=== PATIENT | female | born 1940 | race Caucasian/White ===

== ENCOUNTER → 2017-05-15 | Outpatient (CLI) | payer OTHER ==
[~2017-05-15] MED LIST: ALPR.25 PO; ASPI81CH PO; ATEN25 PO; ATOR40TA PO; GLYBURIDE; HYDR1TAB94 PO; INSULANPEN SC; LISI20; LOPE2C PO; METFORMIN; NAPR220 PO; Nortriptyline H25 MG PO; OMEP20ER PO; OXYB5 PO; ROSU10TA; TRADJENTA5 MG PO; UBID10; VENL75; ZOLP5 PO
[2017-05-15 16:33] LABS: Creatinine, Urine Random 87.4 mg/dL (27.00-270.00)
[2017-05-15 16:35] LABS: Microalb/Creat Ratio UR, Rand 34.325 mg/g (0.000-30.000)
== END | disposition home or self-care (01) ==
LOC: LAB SHORT 14:10 → LAB 14:10 → LAB FUT 04-29 16:25 → EDSTATUS 04-29 16:25
PROVIDERS: Family Medicine
DX: E11.9 Type 2 diabetes mellitus without complications (principal); E78.5 Hyperlipidemia, unspecified
CPT/HCPCS: 82043; 82570

== ENCOUNTER 2018-09-17 23:13 | Inpatient (IN) | payer OTHER ==
[~2018-09-17] VITALS: Ht 167.6 cm; Wt 81.2 kg
[2018-09-18 00:25] LABS: BASOPHILS ABSOLUTE AUTO 0.03 K/mm3 (0.00-0.23); BASOPHILS PERCENT AUTO 0 % (0-2); EOSINOPHILS PERCENT AUTO 0 % (0-6); Hematocrit 45.3 % (33.0-51.0); Hemoglobin 14.3 g/dL (11.5-16.0); IMMATURE GRAN ABSOLUTE AUTO 0.06 K/mm3 (0.00-0.10); IMMATURE GRAN PERCENT AUTO 1 % (0-1); LYMPHOCYTES ABSOLUTE AUTO 1.15 K/mm3 (0.84-5.20); LYMPHOCYTES PERCENT AUTO 10 % (21-46); MONOCYTES PERCENT AUTO 8 % (4-13); Mean Corpuscular HGB 28.7 pg (26.0-34.0); Mean Corpuscular HGB Conc 31.6 g/dL (31.5-36.5); Mean Corpuscular Volume 91 fL (80-100); Mean Platelet Volume 10.8 fL (9.1-12.4); NEUTROPHILS PERCENT AUTO 81 % (41-73); Platelet Count 226 K/mm3 (150-400); RDW Coefficient Variation 12.9 % (11.7-14.2); RDW Standard Deviation 42.3 fL (35.1-46.3); Red Blood Cell Count 4.99 M/mm3 (3.80-5.20); White Blood Cell Count 11.24 K/mm3 (4.00-11.30)
[2018-09-18 00:38] LABS: Alanine Aminotransfer (ALT/SGP 20 U/L (12-78); Albumin, Blood 3.7 g/dL (3.4-5.0); Albumin/Globulin Ratio 0.8 (0.8-1.8); Alk Phos 82 U/L (50-136); Anion Gap 10 mmol/L (6-16); Aspartate Aminotrans (AST/SGOT 19 U/L (12-37); Blood Urea Nitrogen 27 mg/dL (8-24); Bun/Creatinine Ratio 13.3 (12.0-20.0); CO2, Blood 27 mmol/L (21-32); Calcium, Blood 8.9 mg/dL (8.5-10.1); Chloride, Blood 103 mmol/L (98-108); Creatinine, Blood 2.03 mg/dL (0.40-1.00); Globulin, Blood 4.7 g/dL (2.2-4.0); Glomerular Filtration Rate 25 (60-); Glucose, Blood 297 mg/dL (70-99); International Normalized Ratio 0.99; Magnesium, Blood 1.4 mg/dL (1.6-2.4); Potassium, Blood 3.5 mmol/L (3.5-5.5); Prothrombin Time Results 10.5 Sec (9.7-11.5); Sodium, Blood 140 mmol/L (136-145); Total Protein, Blood 8.4 g/dL (6.4-8.2); Troponin I <0.015 ng/mL (0.000-0.040)
[2018-09-18] MEDS ORDERED: TRAZ100 PO (01:11)
[2018-09-18] MEDS ORDERED: BENADRYL25 MG PO (01:12)
--- NOTE | 2018-09-18 05:28 | NUR ---
PATIENT IS A NEW ADMIT FROM THE ED. SELF TRANSFER FROM BED TO [facility]. AXO X 3 AND ONE ASSIST TO BSC. IV PROTONIX INFUSING. ORIENTED TO ROOM AND CALL LIGHT SYSTEM. DENIES PAIN, SOB, AND N/V. CALL LIGHT IN REACH.
[2018-09-18 06:07] LABS: BASOPHILS ABSOLUTE AUTO 0.02 K/mm3 (0.00-0.23); BASOPHILS PERCENT AUTO 0 % (0-2); EOSINOPHILS PERCENT AUTO 0 % (0-6); Hematocrit 41.9 % (33.0-51.0); Hemoglobin 13.1 g/dL (11.5-16.0); IMMATURE GRAN ABSOLUTE AUTO 0.04 K/mm3 (0.00-0.10); IMMATURE GRAN PERCENT AUTO 0 % (0-1); LYMPHOCYTES ABSOLUTE AUTO 1.29 K/mm3 (0.84-5.20); LYMPHOCYTES PERCENT AUTO 12 % (21-46); MONOCYTES ABSOLUTE AUTO 1.01 K/mm3 (0.16-1.47); MONOCYTES PERCENT AUTO 9 % (4-13); Mean Corpuscular HGB 28.6 pg (26.0-34.0); Mean Corpuscular HGB Conc 31.3 g/dL (31.5-36.5); Mean Corpuscular Volume 92 fL (80-100); Mean Platelet Volume 10.6 fL (9.1-12.4); NEUTROPHILS ABSOLUTE AUTO 8.75 K/mm3 (1.96-9.15); NEUTROPHILS PERCENT AUTO 79 % (41-73); Platelet Count 192 K/mm3 (150-400); RDW Standard Deviation 42.8 fL (35.1-46.3); Red Blood Cell Count 4.58 M/mm3 (3.80-5.20); White Blood Cell Count 11.11 K/mm3 (4.00-11.30)
--- NOTE | 2018-09-18 06:10 | NUR ---
GI AND SURGERY CONSULTS CALLED IN.
--- NOTE | 2018-09-18 16:37 | NUR ---
SHIFT SUMMARY THE PATIENT PRESENTED THIS SHIFT WITH VITALS WNL, A&O X4 AND WITH LUNG SOUNDS THAT WERE DIMINISHED IN THE BASES. THE PATIENT'S BLOOD REPORT CAME BACK WITH THE PATIENT HAVING MULTIPAL ANTI-BODIES IN HER BLOOD, SO ANY BLOOD TRANSFUSIONS WILL HAVE TO BE ORDERED IN FOR THE PATIENT. THE PATIENT HAD A CONSULT FROM DR. LOWERY AND IS WAITING FOR DR. OLGUIN TO DO HIS CONSULT. THE PATIENT HAS COMPLAINED OF NAUSEA MOST OF THE SHIFT AND HAS RECEIVED ZOFRAN TWICE AND HAS A PROTONIX DRIP RUNNING ALL SHIFT. THE PATIENT HAS BEEN NPO MOST OS THE SHIFT, EXCEPT ICE CHIPS UNTIL 1400 THEN COMPLETELY NPO. THE PATIENT IS RESTING WAITING A THIS TIME, WILL CONTINUE TO MONITOR.
--- NOTE | 2018-09-18 19:07 | NUR ---
C/O 8-9/10 UPPER ABDOMEN, MIDDLE. DESCRIBES ACHING AND STATES IT IS TOLERABLE. POSTIONED FOR COMFORT.
--- NOTE | 2018-09-18 19:10 | NUR ---
History, Chart, Medications and Allergies reviewed before start of procedure. Patient confirms NPO status and agrees with scheduled surgery.
--- NOTE | 2018-09-18 19:12 | NUR ---
PATIENT REQUESTED CODEINE TO BE REMOVED FROM HER ALLERGY LIST AND DENIES ALLERGIC REACTION TO IT.
--- NOTE | 2018-09-18 19:26 | NUR ---
09/18/181925 Leigha Lyman A PATIENT DETERMINED TO BE ASA APPROPRIATE FOR PROPOFOL SEDATION PRIOR TO START OF PROCEDURE BY DR. DURAN. MONITOR INTACT WITH CONTINUOUS PULSE OXIMETRY AND INTERMITTENT BP.
--- NOTE | 2018-09-18 20:04 | NUR ---
EGD COMPLETE. PATIENT TO BE TRANSFERED TO PCU WHEN A ROOM IS AVAILABLE. 18F NG SUMP TUBE TO LOW INTERMITTEN SX VIA WALL SX UNIT. DARK BROWN CONTENTS BEING SUCTIONED INTO CANISTER.
--- NOTE | 2018-09-18 20:08 | NUR ---
DR DURAN AT BEDSIDE IN DAY SURGERY SPEAKING TO PATIENT ABOUT EGD RESULTS.
--- NOTE | 2018-09-18 22:16 | NUR ---
1855 09/18/18 PT TAKEN VIA STRETCHER TO ENDOSCOPY AT CHANGE OF SHIFT. CALL RECEIVED AN HOUR LATER PT WAS TO BE TRANSFERRED TO PCU 13 FROM THE PROCEDURE ROOM. WAS NOTIFIED, HE WAS IN ROOM 303 WAITING FOR HIS WIFES RETURN, PT BELONGINGS SENT WITH TO PCU 13.
--- NOTE | 2018-09-18 23:10 | NUR ---
POST PROCEDURE: PT TO PCU13 AT ABOUT 2030. DAY SURGERY FAUSTO ADAMS GAVE REPORT AT BEDSIDE. UPON ASSESSMENT PT IS IN NO VISABLE DISTRESS, VSS, PT ORIENTED. NGT TO LOW INTERMITTANT SUCTION, DRAINAGE IS BLACK, MODERATE AMOUNT. FAUSTO ADAMS REPORTS POST OP VITALS ARE NOW COMPLETE WITH VITALS TAKEN ON PCU, WILL CTM. PT DENIES ANY PAIN, NAUSEA, UNDERSTANDS HOW TO USE CALL LIGHT. PT AT BEDSIDE. WILL MONITOR
[2018-09-19 06:02] LABS: BASOPHILS ABSOLUTE AUTO 0.04 K/mm3 (0.00-0.23); BASOPHILS PERCENT AUTO 0 % (0-2); EOSINOPHILS PERCENT AUTO 0 % (0-6); Hematocrit 39.6 % (33.0-51.0); Hemoglobin 12.3 g/dL (11.5-16.0); IMMATURE GRAN ABSOLUTE AUTO 0.03 K/mm3 (0.00-0.10); IMMATURE GRAN PERCENT AUTO 0 % (0-1); LYMPHOCYTES ABSOLUTE AUTO 1.55 K/mm3 (0.84-5.20); LYMPHOCYTES PERCENT AUTO 16 % (21-46); MONOCYTES ABSOLUTE AUTO 1.07 K/mm3 (0.16-1.47); MONOCYTES PERCENT AUTO 11 % (4-13); Mean Corpuscular HGB 28.9 pg (26.0-34.0); Mean Corpuscular HGB Conc 31.1 g/dL (31.5-36.5); Mean Corpuscular Volume 93 fL (80-100); Mean Platelet Volume 10.8 fL (9.1-12.4); NEUTROPHILS ABSOLUTE AUTO 6.92 K/mm3 (1.96-9.15); NEUTROPHILS PERCENT AUTO 72 % (41-73); Platelet Count 176 K/mm3 (150-400); RDW Coefficient Variation 13.2 % (11.7-14.2); RDW Standard Deviation 44.7 fL (35.1-46.3); Red Blood Cell Count 4.26 M/mm3 (3.80-5.20); White Blood Cell Count 9.61 K/mm3 (4.00-11.30)
--- NOTE | 2018-09-19 06:17 | NUR ---
SUMMARY: PT HAS DONE WELL POST EGD. DR. HEREDIA CALLED AT ABOUT 2020 DUE TO PHARMACY UNABLE TO MAKE ALL PO MEDS IV REQUESTED BY DR. DURAN. WILL HOLD PO MEDS WHILE PT NPO. ABLE TO ORDER IV BENADRYAL AND METOPROLOL PRN. PT HAD SOME ASYMPTOMATIC HTN, SEE VS, MEDICATED PER EMAR, OTHERWISE VSS. PT IS A/O, TELE WNL. NGT ON INTERMITTANT SUCTION, TOTAL OF 300ML OUT SINCE INSERTED IN PROCEDURE, BLACK LIQUID. PT HAS DENIED NAUSEA/PAIN THIS SHIFT. ABLE TO SLEEP WELL TONIGHT.
[2018-09-19 06:23] LABS: Albumin, Blood 2.9 g/dL (3.4-5.0); Albumin/Globulin Ratio 0.7 (0.8-1.8); Bilirubin, Total 0.9 mg/dL (0.1-1.0); Bun/Creatinine Ratio 15.1 (12.0-20.0); Creatinine, Blood 1.79 mg/dL (0.40-1.00); Globulin, Blood 3.9 g/dL (2.2-4.0); Potassium, Blood 3.6 mmol/L (3.5-5.5); Total Protein, Blood 6.8 g/dL (6.4-8.2)
--- NOTE | 2018-09-19 09:55 | NUR ---
PT PLEASANT COOP A/O. SOME ABDOMINAL TENDERNESS. HAS NG TUBE IN PLACE TO LOW INT SUCTION. PRODUCING BLACKIS EMESIS IN CONTAINER. H/R REG, NO MURMER NOTED. PER TELE: NSR IN 90'S. LUNGS CLEAR, RESP EASY, UNLABORED. ON R/A. BT X4 LAST BM 2 DAYS. VIODS PER BATHROOM, 1 ASST, SOOME INCONT. IN ATTENDS. BED IN LOW POSITION, CALL LITE IN REACH, CALLS APPROP
--- NOTE | 2018-09-19 13:11 | NUR ---
Attempted Pt visit this afternoon. Within minutes of arrival Pt receives phone call and requests for this RN to come back at a later time.
--- NOTE | 2018-09-19 13:28 | NUR ---
CALLED REPORT TO FAUSTO TSANG AT [facility]. [phone]
--- NOTE | 2018-09-19 14:27 | NUR ---
PT SENT OUT ON [facility] [place] AT 2299
== END 2018-09-19 14:21 | disposition short-term general hospital (02) | DRG 378 ==
LOC: ER 23:13 → MEDS 23:14 → PCU 09-18 20:43
PROVIDERS: Emergency Medicine; Internal Medicine; Internal Medicine Gastroenterology; ADMIT Hospitalist
PROC: 0DJ08ZZ Inspection of Upper Intestinal Tract, Via Natural or Artificial Opening Endoscopic (ICD-10-PCS; principal; 2018-09-18 19:00)
DX: K92.0 Hematemesis (principal); N18.4 Chronic kidney disease, stage 4 (severe); K44.9 Diaphragmatic hernia without obstruction or gangrene; E11.22 Type 2 diabetes mellitus with diabetic chronic kidney disease; Z79.4 Long term (current) use of insulin; E78.5 Hyperlipidemia, unspecified; I12.9 Hypertensive chronic kidney disease with stage 1 through stage 4 chronic kidney disease, or unspecified chronic kidney disease; L40.50 Arthropathic psoriasis, unspecified; D51.0 Vitamin B12 deficiency anemia due to intrinsic factor deficiency; Z79.82 Long term (current) use of aspirin; R13.10 Dysphagia, unspecified; Z96.642 Presence of left artificial hip joint; K57.30 Diverticulosis of large intestine without perforation or abscess without bleeding; K22.8 Other specified diseases of esophagus; E11.42 Type 2 diabetes mellitus with diabetic polyneuropathy; G89.29 Other chronic pain; Z79.891 Long term (current) use of opiate analgesic; H40.9 Unspecified glaucoma; G43.909 Migraine, unspecified, not intractable, without status migrainosus; M19.90 Unspecified osteoarthritis, unspecified site; K31.89 Other diseases of stomach and duodenum; Z79.1 Long term (current) use of non-steroidal anti-inflammatories (NSAID)
CPT/HCPCS: 36415; 74176; 80053; 82272; 82947; 83605; 83690; 83735; 84484; 85025; 85610; 86850; 86900; 86901; 93005; 93010; 96365; 96366; 96368; 96375; 96376; 99285-25; C9113; J0360; J1170; J1200; J2405; J2704; J3475; J7030; J7120

== ENCOUNTER → 2018-12-17 | Outpatient (CLI) | payer OTHER ==
[~2018-12-17] MED LIST changes: +Aspirin EC81 MG PO; +BENADRYL25 MG PO; +MAG6464 MG PO; +TRAZ100 PO
[2018-12-17 19:19] LABS: Bilirubin, Urine Neg (Neg); Blood, Urine 3+ (Neg); Glucose Qualitative, Urine Neg (Neg); Ketones, Urine Neg (Neg); Leukocyte Esterase, Urine 3+ (Neg); Nitrite, Urine Pos (Neg); Protein, Urine 2+ (Neg); Specific Gravity, Urine 1.015 (1.003-1.022); Urobilinogen, Urine NORM (Normal)
[2018-12-17 19:31] LABS: Appearance, Urine Hazy (Clear); Color, Urine Yellow (P-Yellow)
[2018-12-17 19:35] LABS: Bacteria Many /hpf; Red Blood Cells, Urine 0-2 /hpf (0-2); Squamous Epithelial Cells Few /hpf (Few)
== END | disposition home or self-care (01) ==
LOC: LAB 18:56 → LAB SHORT 18:56
PROVIDERS: Family Medicine
DX: R30.0 Dysuria (principal)
CPT/HCPCS: 81001; 87077; 87086; 87147; 87186

== ENCOUNTER 2019-04-07 09:17 | Day surgery (SDC) | payer OTHER ==
[~2019-04-07] VITALS: Ht 167.6 cm; Wt 81.4 kg
--- NOTE | 2019-04-07 11:46 | NUR ---
04/07/19 Mima6 Danielle Bustos CBG WAS 55. DR STARKEY NOTIFIED, PATIENT AWAKE ALERT SKIN P/W/D, DRINKING V8 JUICE AND EATING COOKIES, NO ORDERS AT THIS TIME
== END 2019-04-07 12:00 | disposition home or self-care (01) ==
LOC: ORSCSDS 09:17
PROVIDERS: Ophthalmology
PROC: 08RK3JZ Replacement of Left Lens with Synthetic Substitute, Percutaneous Approach (ICD-10-PCS; principal; 2019-04-07 10:30)
DX: H25.12 Age-related nuclear cataract, left eye (principal); I10 Essential (primary) hypertension; E11.9 Type 2 diabetes mellitus without complications; E78.00 Pure hypercholesterolemia, unspecified; Z79.4 Long term (current) use of insulin; Z79.82 Long term (current) use of aspirin; Z79.899 Other long term (current) drug therapy
CPT/HCPCS: 82947; J2001; J2250; J3010; J3301; J7799; V2632

== ENCOUNTER → 2019-08-18 | Outpatient (CLI) | payer OTHER | END | disposition home or self-care (01) | LOC: LAB 13:52 → LAB SHORT 13:52 | DX: N39.0 Urinary tract infection, site not specified (principal) | CPT/HCPCS: 87077; 87086; 87186 ==

== ENCOUNTER 2020-01-05 14:38 | Inpatient (IN) | payer OTHER ==
[~2020-01-05] VITALS: Ht 167.6 cm; Wt 73.7 kg
[~2020-01-05 14:38] MED LIST changes: +BASAGLAR K100 UNIT/1 SC; -INSULANPEN SC
[2020-01-05] MEDS ORDERED: AMLO5 PO (15:39)
[2020-01-05] MEDS ORDERED: GABA300 PO (15:40)
[2020-01-05] MEDS ORDERED: METO25ER PO (15:40)
[2020-01-05 16:22] LABS: BASOPHILS ABSOLUTE AUTO 0.04 K/mm3 (0.00-0.23); BASOPHILS PERCENT AUTO 0 % (0-2); EOSINOPHILS PERCENT AUTO 0 % (0-6); Hematocrit 44.6 % (33.0-51.0); Hemoglobin 14.2 g/dL (11.5-16.0); IMMATURE GRAN ABSOLUTE AUTO 0.08 K/mm3 (0.00-0.10); IMMATURE GRAN PERCENT AUTO 1 % (0-1); LYMPHOCYTES ABSOLUTE AUTO 0.67 K/mm3 (0.84-5.20); LYMPHOCYTES PERCENT AUTO 5 % (21-46); MONOCYTES ABSOLUTE AUTO 1.46 K/mm3 (0.16-1.47); MONOCYTES PERCENT AUTO 11 % (4-13); Mean Corpuscular HGB 28.2 pg (26.0-34.0); Mean Corpuscular HGB Conc 31.8 g/dL (31.5-36.5); Mean Corpuscular Volume 89 fL (80-100); Mean Platelet Volume 12.3 fL (9.1-12.4); NEUTROPHILS ABSOLUTE AUTO 10.74 K/mm3 (1.96-9.15); NEUTROPHILS PERCENT AUTO 83 % (41-73); Platelet Count 167 K/mm3 (150-400); RDW Coefficient Variation 13.2 % (11.7-14.2); RDW Standard Deviation 42.8 fL (35.1-46.3); Red Blood Cell Count 5.03 M/mm3 (3.80-5.20); White Blood Cell Count 12.99 K/mm3 (4.00-11.30)
[2020-01-05 16:50] LABS: Alanine Aminotransfer (ALT/SGP 16 U/L (12-78); Albumin, Blood 2.3 g/dL (3.4-5.0); Albumin/Globulin Ratio 0.5 (0.8-1.8); Alk Phos 86 U/L (50-136); Anion Gap 10 mmol/L (6-16); Aspartate Aminotrans (AST/SGOT 22 U/L (12-37); Bilirubin, Total 1.2 mg/dL (0.1-1.0); Blood Urea Nitrogen 31 mg/dL (8-24); Bun/Creatinine Ratio 14.3 (12.0-20.0); CO2, Blood 23 mmol/L (21-32); Calcium, Blood 8.1 mg/dL (8.5-10.1); Chloride, Blood 100 mmol/L (98-108); Creatinine, Blood 2.17 mg/dL (0.40-1.00); Globulin, Blood 4.7 g/dL (2.2-4.0); Glomerular Filtration Rate 23 (60-); Glucose, Blood 290 mg/dL (70-99); Potassium, Blood 3.7 mmol/L (3.5-5.5); Sodium, Blood 133 mmol/L (136-145)
[2020-01-05 17:01] LABS: Ethanol (Alcohol), Blood, Med <3 mg/dL
[2020-01-05 18:13] LABS: Source, Urine Clean Catch
[2020-01-05 18:21] LABS: Blood, Urine 5+ (Neg); Glucose Qualitative, Urine Neg (Neg); Ketones, Urine 1+ (Neg); Leukocyte Esterase, Urine 3+ (Neg); Nitrite, Urine Pos (Neg); Protein, Urine 3+ (Neg); Urobilinogen, Urine 1+ (Normal)
[2020-01-05 18:47] LABS: Appearance, Urine Cloudy (Clear); Bilirubin, Urine 1+ (Neg); Color, Urine Yellow (P-Yellow)
[2020-01-05 18:48] LABS: White Blood Cells, Urine TNTC /hpf (0-5)
[2020-01-05 18:49] LABS: Bacteria Many /hpf; Red Blood Cells, Urine TNTC /hpf (0-2); Squamous Epithelial Cells Few /hpf (Few)
[2020-01-05] MEDS ORDERED: HYDROCODONE-AC1 EAC8 PO (20:05)
[2020-01-05] MEDS ORDERED: NORTRIPTYLINE H25 M1 PO (20:06)
[2020-01-05] MEDS ORDERED: ATOR40TA PO (20:07)
--- NOTE | 2020-01-05 23:21 | NUR ---
PATIENT IS A NEW ADMIT FROM THE ED. AXOX 3 AND THREE PERSON TRANSFER FROM [facility] TO BED. BEDREST. NS INFUSING AT 100 mL/HR. DENIES PAIN AND SOB. NAUSEOUS IN BED WITH TRANSFER AND MOVEMENT. ON ROOM AIR. PATIENT ORIENTED TO ROOM AND CALL LIGHT SYSTEM. PATIENT NOTED TO HAVE TEMP 101.3 AND FIVE BLANKETS REMOVED. TEMP RECHECKED AT 99.1. REPORTS WILL WATCH TV FOR AN HOUR.
--- NOTE | 2020-01-05 23:33 | NUR ---
TELEMETRY PLACED AND TECH REPORTS ST 110 W/PVC. CBG CHECKED AT 201. PSORIASIS NOTED ON RIGHT TOES AND PATIENT REPORTS GROIN AREA AND NOTED. NS INFUSING AT 100 ml/HR. IV ZOFRAN 4 MG GIVEN FOR NAUSEA. PATIENT BROUGHT JELLO TO SNACK ON. CALL LIGHT IN REACH.
--- NOTE | 2020-01-06 04:20 | NUR ---
SHIFT SUMMARY PATIENT HAD NO ACUTE CHANGES OBSERVED. AXOX 3 AND BEDREST. PIV REMAINS INTACT. NS INFUSING AT 75mL/HR. CBG 207. SUPERINTENDENT MAINTENANCE REPORTS ST 110 W/PVC. PATIENT REPORTS NOT TAKING HER MEDICATION FOR TWO-THREE NIGHTS STAYING IN BED. VSS WITH LOW GRADE TEMP. TAKES MEDICATION TWO AT A TIME WITH WATER. DENIES PAIN AND SOB. NAUSEOUS ON ADMIT AND IV ZOFRAN GIVEN PER EMAR X ONE. PATIENT WATCHED TV AND ABLE TO SLEEP. CALL LIGHT IN REACH. BED IN LOWEST POSIITON AND ALARM ACTIVATED. WILL CONTINUE TO MONITOR UNTIL DAY SHIFT NURSE ASSUMES CARE.
[2020-01-06 05:43] LABS: BASOPHILS ABSOLUTE AUTO 0.04 K/mm3 (0.00-0.23); BASOPHILS PERCENT AUTO 0 % (0-2); EOSINOPHILS PERCENT AUTO 0 % (0-6); Hematocrit 41.9 % (33.0-51.0); Hemoglobin 13.4 g/dL (11.5-16.0); IMMATURE GRAN ABSOLUTE AUTO 0.13 K/mm3 (0.00-0.10); IMMATURE GRAN PERCENT AUTO 1 % (0-1); LYMPHOCYTES ABSOLUTE AUTO 0.81 K/mm3 (0.84-5.20); LYMPHOCYTES PERCENT AUTO 7 % (21-46); MONOCYTES PERCENT AUTO 16 % (4-13); Mean Corpuscular Volume 88 fL (80-100); Mean Platelet Volume 11.8 fL (9.1-12.4); NEUTROPHILS ABSOLUTE AUTO 8.83 K/mm3 (1.96-9.15); NEUTROPHILS PERCENT AUTO 76 % (41-73); Platelet Count 106 K/mm3 (150-400); RDW Standard Deviation 41.8 fL (35.1-46.3); Red Blood Cell Count 4.78 M/mm3 (3.80-5.20); White Blood Cell Count 11.61 K/mm3 (4.00-11.30)
[2020-01-06 06:34] LABS: Albumin, Blood 2.1 g/dL (3.4-5.0); Albumin/Globulin Ratio 0.5 (0.8-1.8); Bilirubin, Total 0.6 mg/dL (0.1-1.0); Bun/Creatinine Ratio 14.5 (12.0-20.0); Calcium, Blood 8.2 mg/dL (8.5-10.1); Creatinine, Blood 2.35 mg/dL (0.40-1.00); Globulin, Blood 4.5 g/dL (2.2-4.0); Potassium, Blood 3.6 mmol/L (3.5-5.5); Total Protein, Blood 6.6 g/dL (6.4-8.2)
--- NOTE | 2020-01-06 19:24 | NUR ---
SHIFT SUMAMRY: NO ACUTE CHANGES TO REPORT THIS SHIFT. PT A&O; CALM AND COOPERATIVE WITH CARE. NO C/O PAIN / NAUSEA THIS SHIFT. PT/OT FOLLOWING. FLUIDS & IV ABX CONTINUING. REPORT GIVEN TO ONCOMING RN.
--- NOTE | 2020-01-07 03:50 | NUR ---
SHIFT SUMMARY PATIENT HAD NO ACUTE CHANGES OBSERVED. AXOX 3 AND BEDREST NOC SHIFT. PATIENT REPORTS WORKING WITH PT DURING THE DAY. PIV REMAINS INTACT AND NS FINISHED INFUSING AT 50 mL/HR X 1.5 BAGS. INSTRUMENTATION DESIGNER REPORTS NSR W/PAC @ 82. CBG 202. DENIES PAIN, SOB, AND N/V. VSS/AFEBRILE. PATIENT REPORTS FEELING BETTER BUT WOULD LIKE TO STAY ONE MORE DAY. COOPERATIVE WITH CARE. CALL LIGHT IN REACH. BED IN LOWEST POSITION. WILL CONTINUE TO MONITOR UNTIL DAY SHIFT NURSE ASSUMES CARE.
[2020-01-07 05:19] LABS: BASOPHILS ABSOLUTE AUTO 0.03 K/mm3 (0.00-0.23); BASOPHILS PERCENT AUTO 0 % (0-2); EOSINOPHILS PERCENT AUTO 0 % (0-6); Hematocrit 41.6 % (33.0-51.0); Hemoglobin 12.8 g/dL (11.5-16.0); IMMATURE GRAN ABSOLUTE AUTO 0.03 K/mm3 (0.00-0.10); IMMATURE GRAN PERCENT AUTO 0 % (0-1); LYMPHOCYTES ABSOLUTE AUTO 0.75 K/mm3 (0.84-5.20); LYMPHOCYTES PERCENT AUTO 10 % (21-46); MONOCYTES ABSOLUTE AUTO 1.31 K/mm3 (0.16-1.47); MONOCYTES PERCENT AUTO 18 % (4-13); Mean Corpuscular HGB 28.1 pg (26.0-34.0); Mean Corpuscular HGB Conc 30.8 g/dL (31.5-36.5); Mean Corpuscular Volume 91 fL (80-100); Mean Platelet Volume 11.9 fL (9.1-12.4); NEUTROPHILS ABSOLUTE AUTO 5.23 K/mm3 (1.96-9.15); NEUTROPHILS PERCENT AUTO 71 % (41-73); Platelet Count 114 K/mm3 (150-400); RDW Coefficient Variation 13.2 % (11.7-14.2); Red Blood Cell Count 4.56 M/mm3 (3.80-5.20); White Blood Cell Count 7.35 K/mm3 (4.00-11.30)
[2020-01-07 06:07] LABS: Albumin/Globulin Ratio 0.4 (0.8-1.8); Bilirubin, Total 0.4 mg/dL (0.1-1.0); Bun/Creatinine Ratio 16.4 (12.0-20.0); Calcium, Blood 8.3 mg/dL (8.5-10.1); Creatinine, Blood 2.25 mg/dL (0.40-1.00); Globulin, Blood 4.8 g/dL (2.2-4.0); Magnesium, Blood 1.3 mg/dL (1.6-2.4); Phosphorus, Blood 2.1 mg/dL (2.5-4.9); Potassium, Blood 3.5 mmol/L (3.5-5.5); Total Protein, Blood 6.8 g/dL (6.4-8.2)
[2020-01-08 04:54] LABS: BASOPHILS ABSOLUTE AUTO 0.02 K/mm3 (0.00-0.23); BASOPHILS PERCENT AUTO 0 % (0-2); EOSINOPHILS PERCENT AUTO 0 % (0-6); Hemoglobin 11.3 g/dL (11.5-16.0); IMMATURE GRAN ABSOLUTE AUTO 0.04 K/mm3 (0.00-0.10); IMMATURE GRAN PERCENT AUTO 1 % (0-1); LYMPHOCYTES PERCENT AUTO 24 % (21-46); MONOCYTES ABSOLUTE AUTO 1.01 K/mm3 (0.16-1.47); MONOCYTES PERCENT AUTO 19 % (4-13); Mean Corpuscular HGB 27.7 pg (26.0-34.0); Mean Corpuscular HGB Conc 30.5 g/dL (31.5-36.5); Mean Corpuscular Volume 91 fL (80-100); Mean Platelet Volume 12.4 fL (9.1-12.4); NEUTROPHILS ABSOLUTE AUTO 3.05 K/mm3 (1.96-9.15); NEUTROPHILS PERCENT AUTO 56 % (41-73); Platelet Count 124 K/mm3 (150-400); RDW Coefficient Variation 13.2 % (11.7-14.2); RDW Standard Deviation 44.1 fL (35.1-46.3); Red Blood Cell Count 4.08 M/mm3 (3.80-5.20); White Blood Cell Count 5.42 K/mm3 (4.00-11.30)
[2020-01-08 05:21] LABS: Albumin, Blood 1.9 g/dL (3.4-5.0); Anion Gap 7 mmol/L (6-16); Blood Urea Nitrogen 43 mg/dL (8-24); Bun/Creatinine Ratio 20.4 (12.0-20.0); CO2, Blood 24 mmol/L (21-32); Calcium, Blood 8.5 mg/dL (8.5-10.1); Chloride, Blood 110 mmol/L (98-108); Creatinine, Blood 2.11 mg/dL (0.40-1.00); Glomerular Filtration Rate 24 (60-); Glucose, Blood 170 mg/dL (70-99); Phosphorus, Blood 1.7 mg/dL (2.5-4.9); Potassium, Blood 4.1 mmol/L (3.5-5.5); Sodium, Blood 141 mmol/L (136-145)
--- NOTE | 2020-01-08 06:31 | NUR ---
SHIFT SUMMARY IV LEAKING AT START OF SHIFT. PT WAS DIFFICULT START. PCU AERIAL HURRICANE HUNTER EVENTUALLY WAS ABLE TO GAIN ACCESS USING ULTRASOUND. PT'S STRENGTH IS IMPROVING. PT AMBULATED EASILY INTO THE BATHROOM WITH ONLY A SBA. NO COMPLAINTS OF BURNING OR PAIN WITH URINATION. PT DID REPORT SOME CHRONIC BACK PAIN BUT DID NOT REQUIRE MEDICATION. VITAL SIGNS STABLE. NO ACUTE CHANGES THIS SHIFT. WILL CONTINUE TO MONITOR AND REPORT TO DAY RN.
[2020-01-08] MEDS ORDERED: CEFP200 PO (11:25)
[2020-01-08] MEDS ORDERED: Triamcinolone A15 G3 TOP (11:27)
--- NOTE | 2020-01-08 14:01 | NUR ---
PT A/O X3 AND IS SBA WITH A FWW TO THE BATHROOM. PT IS CONT/INCONT. PT DC'D WITH HOME HEALTH AT AROUND 1230.
== END 2020-01-08 12:45 | disposition home or self-care (01) | DRG 683 ==
LOC: ER 14:38 → MEDS 21:26
PROVIDERS: Emergency Medicine; Hospitalist; Internal Medicine Gastroenterology; ADMIT Internal Medicine
DX: N17.9 Acute kidney failure, unspecified (principal); N39.0 Urinary tract infection, site not specified; E86.0 Dehydration; E11.65 Type 2 diabetes mellitus with hyperglycemia; E11.22 Type 2 diabetes mellitus with diabetic chronic kidney disease; I12.9 Hypertensive chronic kidney disease with stage 1 through stage 4 chronic kidney disease, or unspecified chronic kidney disease; Z96.642 Presence of left artificial hip joint; D69.6 Thrombocytopenia, unspecified; Z90.5 Acquired absence of kidney; B96.20 Unspecified Escherichia coli [E. coli] as the cause of diseases classified elsewhere; R62.7 Adult failure to thrive; W18.30XA Fall on same level, unspecified, initial encounter; Y92.9 Unspecified place or not applicable; Z68.26 Body mass index [BMI] 26.0-26.9, adult; Z79.4 Long term (current) use of insulin
CPT/HCPCS: 36415; 51701; 71045; 80053; 80069; 81001; 82947; 83735; 84100; 85025; 87077; 87086; 87186; 93005; 93010; 96361-59; 96365-59; 97110; 97116; 97161; 97165; 99285-25; A9270-GY; G0480; J0696; J1644; J2405; J3480; J7030

== ENCOUNTER 2020-07-12 21:39 | Inpatient (IN) | payer OTHER, MEDICARE ==
[~2020-07-12] VITALS: Ht 167.6 cm; Wt 64.3 kg
[~2020-07-12 21:39] MED LIST changes: +AMLO5 PO; +CEFP200 PO; +GABA300 PO; +HYDROCODONE-AC1 EAC8 PO; +METO25ER PO; +NORTRIPTYLINE H25 M1 PO; +Triamcinolone A15 G3 TOP
[2020-07-12 22:30] LABS: BASOPHILS ABSOLUTE AUTO 0.04 K/mm3 (0.00-0.23); BASOPHILS PERCENT AUTO 0 % (0-2); EOSINOPHILS PERCENT AUTO 0 % (0-6); Hematocrit 46.5 % (33.0-51.0); Hemoglobin 15.2 g/dL (11.5-16.0); IMMATURE GRAN ABSOLUTE AUTO 0.03 K/mm3 (0.00-0.10); IMMATURE GRAN PERCENT AUTO 0 % (0-1); LYMPHOCYTES ABSOLUTE AUTO 1.56 K/mm3 (0.84-5.20); LYMPHOCYTES PERCENT AUTO 16 % (21-46); MONOCYTES ABSOLUTE AUTO 0.82 K/mm3 (0.16-1.47); MONOCYTES PERCENT AUTO 8 % (4-13); Mean Corpuscular HGB 28.7 pg (26.0-34.0); Mean Corpuscular HGB Conc 32.7 g/dL (31.5-36.5); Mean Corpuscular Volume 88 fL (80-100); Mean Platelet Volume 11.9 fL (9.1-12.4); NEUTROPHILS ABSOLUTE AUTO 7.47 K/mm3 (1.96-9.15); NEUTROPHILS PERCENT AUTO 75 % (41-73); Platelet Count 261 K/mm3 (150-400); RDW Coefficient Variation 12.9 % (11.7-14.2); RDW Standard Deviation 41.6 fL (35.1-46.3); Red Blood Cell Count 5.29 M/mm3 (3.80-5.20); White Blood Cell Count 9.92 K/mm3 (4.00-11.30)
[2020-07-12 22:48] LABS: Albumin, Blood 3.6 g/dL (3.4-5.0); Albumin/Globulin Ratio 0.8 (0.8-1.8); Bilirubin, Total 1.4 mg/dL (0.1-1.0); Bun/Creatinine Ratio 29.1 (12.0-20.0); Calcium, Blood 10.3 mg/dL (8.5-10.1); Creatinine, Blood 2.3 mg/dL (0.40-1.00); Globulin, Blood 4.7 g/dL (2.2-4.0); Potassium, Blood 5.5 mmol/L (3.5-5.5); Total Protein, Blood 8.3 g/dL (6.4-8.2)
[2020-07-13 00:29] LABS: Creatine Kinase MB 8.3 ng/mL (0.0-3.6); Creatine Kinase MB Index 2.7 (0.0-4.0)
[2020-07-13 02:49] LABS: Source, Urine Clean Catch
[2020-07-13 02:51] LABS: Bilirubin, Urine Neg (Neg); Blood, Urine 2+ (Neg); Glucose Qualitative, Urine 1+ (Neg); Ketones, Urine 1+ (Neg); Leukocyte Esterase, Urine 3+ (Neg); Nitrite, Urine Pos (Neg); Protein, Urine 2+ (Neg); Urobilinogen, Urine NORM (Normal)
[2020-07-13 02:55] LABS: Appearance, Urine Hazy (Clear); Color, Urine Yellow (P-Yellow)
[2020-07-13 02:56] LABS: Amorphous Light (0-Heavy); Bacteria Many /hpf; Red Blood Cells, Urine 0-2 /hpf (0-2); Squamous Epithelial Cells Few /hpf (Few)
--- NOTE | 2020-07-13 04:40 | NUR ---
SHIFT SUMMARY PT NEW ED ADMISSION THIS AM. PT CONCERNED ABOUT TAKING CARE OF HERSELF AT HOME. PT REPORTS THAT SHE FELL AND WAS DOWN FOR "5 HOURS" BEFORE SHE WAS ABLE TO GET TO A PHONE TO CALL FOR HELP. PT REPORTS THAT SHE HAS BEEN HAVING INCREASING WEAKNESS AT HOME. PT'S CBG IN ED 328. 12 UNITS OF SEMGLEE GIVEN PER ORDERS. PT REQUESTING A SNACK SAYING THAT SHE WAS NOT EATEN FOR DAYS. SUGAR FREE JELLO PROVIDED. PT HAD REDNESS TO GROIN AND INTERGLUTEAL CLEFT. BARRER CREAM APPLIED AND ATTENDS PLACED. NO COMPLAINTS OF PAIN. VITAL SIGNS STABLE. ADMISSION COMPLETED. WILL CONTINUE TO MONITOR AND REPORT TO DAY RN.
[2020-07-13] MEDS ORDERED: MAGNESIUM OXID500 MG PO (05:02)
[2020-07-13 11:08] LABS: BASOPHILS ABSOLUTE AUTO 0.04 K/mm3 (0.00-0.23); BASOPHILS PERCENT AUTO 1 % (0-2); EOSINOPHILS PERCENT AUTO 0 % (0-6); Hemoglobin 12.7 g/dL (11.5-16.0); IMMATURE GRAN ABSOLUTE AUTO 0.01 K/mm3 (0.00-0.10); IMMATURE GRAN PERCENT AUTO 0 % (0-1); LYMPHOCYTES ABSOLUTE AUTO 1.85 K/mm3 (0.84-5.20); LYMPHOCYTES PERCENT AUTO 27 % (21-46); MONOCYTES ABSOLUTE AUTO 0.64 K/mm3 (0.16-1.47); MONOCYTES PERCENT AUTO 9 % (4-13); Mean Corpuscular HGB 29.1 pg (26.0-34.0); Mean Corpuscular HGB Conc 32.6 g/dL (31.5-36.5); Mean Corpuscular Volume 89 fL (80-100); Mean Platelet Volume 11.7 fL (9.1-12.4); NEUTROPHILS ABSOLUTE AUTO 4.44 K/mm3 (1.96-9.15); NEUTROPHILS PERCENT AUTO 64 % (41-73); Platelet Count 176 K/mm3 (150-400); RDW Coefficient Variation 12.6 % (11.7-14.2); RDW Standard Deviation 41.5 fL (35.1-46.3); Red Blood Cell Count 4.36 M/mm3 (3.80-5.20); White Blood Cell Count 6.98 K/mm3 (4.00-11.30)
[2020-07-13 11:30] LABS: Albumin, Blood 2.9 g/dL (3.4-5.0); Albumin/Globulin Ratio 0.7 (0.8-1.8); Bilirubin, Total 0.7 mg/dL (0.1-1.0); Bun/Creatinine Ratio 27.8 (12.0-20.0); Calcium, Blood 8.9 mg/dL (8.5-10.1); Creatinine, Blood 2.16 mg/dL (0.40-1.00); Globulin, Blood 3.9 g/dL (2.2-4.0); Potassium, Blood 3.7 mmol/L (3.5-5.5); Total Protein, Blood 6.8 g/dL (6.4-8.2)
--- NOTE | 2020-07-13 16:10 | NUR ---
ADMIT: 07/13/20 DISCHARGE: DX: severe dehydration CC: kwilcoxADMIT:01/06/20 DISCHARGE: 01/08/20 DX: UTITOC CALL:RESIDENCE: HomeCAREGIVER: selfDX: HTN, CKD=stage 3, chronic pain, DM, see listDME: DM suppliesCCM: [facility]: PATIENT PREFERS [facility]. 01/07/20UMMARY: Admit: - per chart review with Dr. Preciado, pt expressed concern for caring for herself in her home and wonder if she would be appropriate for placement. Nurse called and stated that pt is requesting community resources for activities to do outside of the home because she has been lonely since her . PT and OT met with pt and both are recommending HH services, meals on wheels and OT thought pt might benefit moving into Adult long-term care facility. Per Dr. Preciado, pt will be started on IV antibiotics and IV fluids and will be kept overnight.Went and met with pt. She reports that she and her had their home built less than 2 years ago and she is not ready to move out of it yet. She states that their home was built to be handicap accessible with ramp into the home and wide door frames. Pt stated that she when it came time for her to move out of her home, she would only look at living at [facility] here in town because that is where her sister lived for years and she liked it there. But she also discussed that her 2 nieces live in [place] and she has considered moving there to be closer to family. Her son lives in [place] and has a regional work area that includes [place] and living in [place] would be closer to him to visit her. She states that she already has a 4-wheeled walker at home. 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 She talked about her friends that she is able to do things with and her friend is the one who brought her in last night. We discussed what things she likes to do and reviewed booklet of volunteer options in [facility]. She requested a booklet for her friend to have too. Will bring one to her. Pt asked about meals on wheels and would like their number to call.Pt stated that she would like to stay in the hospital for 3-4 days and is not ready to move home. She stated that she is being taken care of really well here, she now feels like eating and the food is good.-anoop
--- NOTE | 2020-07-13 17:34 | NUR ---
SHIFT SUMMARY PATIENT DENIES PAIN, NAUSEA, AND SHORTNESS OF BREATH. EATING AND DRINKING WELL. WORKED WITH PT/OT TODAY. UP SBA W/FWW TO BR. A/O X4 WITH OCCASSIONAL FORGETFULNESS. PLEASANT AND COOPERATIVE WITH CARE.
--- NOTE | 2020-07-14 13:36 | NUR ---
07/14/20- per chart review with Dr. Flores, pt is not ready to d/c. She could potentially go home over the weekend. Stopped by pt's room, and gave her pamphlets for her friends as she requested. Another staff member was in the room, so just dropped them off. -anoop
--- NOTE | 2020-07-14 17:03 | NUR ---
SUMMARY PT SITTING UP IN THE CHAIR AT THE BEDSIDE, PT HAS WORKED WITH PT/OT TODAY, POSSIBLE PLAN TO HOME WITH HOME HEALTH TOMORROW, PT HAS BEEN PLEASANT AND COOPERATIVE WITH CARE, VSS, WILL CONT TO MONITOR
--- NOTE | 2020-07-14 19:05 | NUR ---
ASSUMED CARE RECEIVED REPORT FROM FAUSTO RONDON. PT UP TO BATHROOM AND BACK TO BED, NO ACUTE DISTRESS NOTED, STEADY GAIT. DENIES NEEDS. CALL LIGHT, POSSESSIONS IN REACH, BED IN LOW POSITION. CONTINUE TO MONITOR.
--- NOTE | 2020-07-14 21:14 | NUR ---
SPOKE TO JAVIER NEFF REGARDING PT'S REQUEST FOR MEDICATION TO AID SLEEP. ORDERS RECEIVED. CONTINUE TO MONITOR.
--- NOTE | 2020-07-15 04:19 | NUR ---
FEATHER STITCHER SUMMARY PT ASLEEP, IN NO ACUTE DISTRESS. VS REVIEWED, WNL. NO ACUTE CHANGES IN CONDITION THROUGH THE NIGHT, SLEPT THROUGHOUT. UP TO BATHROOM WITH FWW AND SBA. PT TOLERATED WELL. PAIN MANAGED WITH MEDS PER EMAR. NO ACUTE NEEDS ASSESSED AT THIS TIME. CALL LIGHT AND POSSESSIONS IN REACH, WILL CONTINUE TO PROVIDE CARE AND REPORT OFF TO DAY RN.
[2020-07-15] MEDS ORDERED: ACET325 PO (16:14)
[2020-07-15] MEDS ORDERED: MIRT15 PO (16:16)
[2020-07-15] MEDS ORDERED: MICONAZOLE TOP (16:16)
--- NOTE | 2020-07-15 18:16 | NUR ---
DISCHARGE PT DISCHARGED HOME WITH HOME HEALTH. WENT OVER DC PACKET WITH PATIENT AND NEW MEDICATION. SPOKE WITH DR GELLER AND LET PATIENT KNOW THAT SHE WILL TAKE HER SEMGLEE NOT TONIGHT BUT TOMORROW BECAUSE SHE HAD IT THIS MORNING. PT ATE DINNER WHILE WAITING FOR RIDE. TOOK OUT IV BEFORE PT LEFT FLOOR. PATIENT TAKEN DOWN VIA WHEELCHAIR BY SUKHDEV RUBIN.
== END 2020-07-15 18:15 | disposition home health service (06) | DRG 641 ==
LOC: ER 21:39 → MEDS 21:40
PROVIDERS: Emergency Medicine; Physician Assistant; ADMIT Internal Medicine
DX: E86.0 Dehydration (principal); N17.9 Acute kidney failure, unspecified; M62.82 Rhabdomyolysis; E44.0 Moderate protein-calorie malnutrition; N18.4 Chronic kidney disease, stage 4 (severe); E11.22 Type 2 diabetes mellitus with diabetic chronic kidney disease; I12.9 Hypertensive chronic kidney disease with stage 1 through stage 4 chronic kidney disease, or unspecified chronic kidney disease; I95.1 Orthostatic hypotension; D63.1 Anemia in chronic kidney disease; Z96.642 Presence of left artificial hip joint; E83.52 Hypercalcemia; E11.65 Type 2 diabetes mellitus with hyperglycemia; Z60.2 Problems related to living alone; L40.50 Arthropathic psoriasis, unspecified; F32.9 Major depressive disorder, single episode, unspecified; G89.4 Chronic pain syndrome; M19.90 Unspecified osteoarthritis, unspecified site; I70.8 Atherosclerosis of other arteries; E86.9 Volume depletion, unspecified; E83.42 Hypomagnesemia; E83.39 Other disorders of phosphorus metabolism; R82.90 Unspecified abnormal findings in urine; R35.0 Frequency of micturition; Z87.442 Personal history of urinary calculi; Z88.5 Allergy status to narcotic agent; Z88.0 Allergy status to penicillin; Z88.8 Allergy status to other drugs, medicaments and biological substances; Z90.710 Acquired absence of both cervix and uterus; Z90.5 Acquired absence of kidney; Z98.890 Other specified postprocedural states; Z90.722 Acquired absence of ovaries, bilateral; Z90.79 Acquired absence of other genital organ(s); Z68.24 Body mass index [BMI] 24.0-24.9, adult; Z79.4 Long term (current) use of insulin; Z79.82 Long term (current) use of aspirin; Z79.899 Other long term (current) drug therapy; Z65.8 Other specified problems related to psychosocial circumstances
CPT/HCPCS: 36415; 70450; 71045; 72070; 72125; 80053; 81001; 82550; 82553; 82947; 83880; 85025; 87086; 93005; 93010; 96360; 96361; 96365; 96372; 97110; 97116; 97162; 97165; 97530; 97535; 99285-25; A9270; G0378; J0696; J1650; J7030

== ENCOUNTER 2020-12-03 13:12 | Emergency (ER) | payer OTHER ==
[~2020-12-03] VITALS: Ht 170.2 cm; Wt 75.8 kg
[~2020-12-03 13:12] MED LIST changes: +ACET325 PO; +MAGNESIUM OXID500 MG PO; +MICONAZOLE TOP; +MIRT15 PO
[2020-12-03 14:14] LABS: BASOPHILS ABSOLUTE AUTO 0.03 K/mm3 (0.00-0.23); BASOPHILS PERCENT AUTO 0 % (0-2); EOSINOPHILS PERCENT AUTO 0 % (0-6); Hematocrit 38.2 % (33.0-51.0); Hemoglobin 12.4 g/dL (11.5-16.0); IMMATURE GRAN ABSOLUTE AUTO 0.11 K/mm3 (0.00-0.10); IMMATURE GRAN PERCENT AUTO 1 % (0-1); LYMPHOCYTES ABSOLUTE AUTO 0.53 K/mm3 (0.84-5.20); LYMPHOCYTES PERCENT AUTO 4 % (21-46); MONOCYTES ABSOLUTE AUTO 0.76 K/mm3 (0.16-1.47); MONOCYTES PERCENT AUTO 6 % (4-13); Mean Corpuscular HGB 28.8 pg (26.0-34.0); Mean Corpuscular HGB Conc 32.5 g/dL (31.5-36.5); Mean Corpuscular Volume 89 fL (80-100); Mean Platelet Volume 10.9 fL (9.1-12.4); NEUTROPHILS ABSOLUTE AUTO 11.36 K/mm3 (1.96-9.15); NEUTROPHILS PERCENT AUTO 89 % (41-73); Platelet Count 147 K/mm3 (150-400); RDW Coefficient Variation 12.7 % (11.7-14.2); RDW Standard Deviation 41.6 fL (35.1-46.3); White Blood Cell Count 12.79 K/mm3 (4.00-11.30)
[2020-12-03 14:32] LABS: Albumin, Blood 2.9 g/dL (3.4-5.0); Albumin/Globulin Ratio 0.6 (0.8-1.8); Bun/Creatinine Ratio 27.4 (12.0-20.0); Calcium, Blood 9.2 mg/dL (8.5-10.1); Creatinine, Blood 2.23 mg/dL (0.40-1.00); Globulin, Blood 4.9 g/dL (2.2-4.0); Potassium, Blood 4.5 mmol/L (3.5-5.5); Total Protein, Blood 7.8 g/dL (6.4-8.2)
[2020-12-03 17:38] LABS: Source, Urine Clean Catch
[2020-12-03 17:40] LABS: Appearance, Urine Clear (Clear); Bilirubin, Urine Neg (Neg); Blood, Urine 5+ (Neg); Color, Urine Yellow (P-Yellow); Glucose Qualitative, Urine 1+ (Neg); Ketones, Urine Neg (Neg); Leukocyte Esterase, Urine 3+ (Neg); Nitrite, Urine Pos (Neg); Protein, Urine 3+ (Neg); Specific Gravity, Urine 1.005 (1.003-1.022); Urobilinogen, Urine NORM (Normal)
[2020-12-03 17:57] LABS: White Blood Cells, Urine 50-100 /hpf (0-5)
[2020-12-03 17:58] LABS: Bacteria Many /hpf; Squamous Epithelial Cells Many /hpf (Few)
[2020-12-03] MEDS ORDERED: CEPH500 PO (18:48)
== END 2020-12-03 20:10 | disposition home or self-care (01) ==
LOC: ER 13:12
PROVIDERS: Emergency Medicine; Physician Assistant
DX: N39.0 Urinary tract infection, site not specified (principal); I12.9 Hypertensive chronic kidney disease with stage 1 through stage 4 chronic kidney disease, or unspecified chronic kidney disease; E78.5 Hyperlipidemia, unspecified; E11.22 Type 2 diabetes mellitus with diabetic chronic kidney disease; N18.30 Chronic kidney disease, stage 3 unspecified; F03.90 Unspecified dementia, unspecified severity, without behavioral disturbance, psychotic disturbance, mood disturbance, and anxiety; Z88.0 Allergy status to penicillin; Z88.5 Allergy status to narcotic agent; Z88.8 Allergy status to other drugs, medicaments and biological substances; Z79.899 Other long term (current) drug therapy
CPT/HCPCS: 36415; 80053; 81001; 85025; 87086; 93005; 93010; 96374; 99284-25; J0696

== ENCOUNTER → 2020-12-29 | Outpatient (CLI) | payer OTHER ==
[~2020-12-29] MED LIST changes: +CEPH500 PO
== END | disposition home or self-care (01) ==
LOC: LAB 16:56 → LAB SHORT 16:56
DX: N39.0 Urinary tract infection, site not specified (principal)
CPT/HCPCS: 87077; 87086; 87186

== ENCOUNTER → 2022-03-01 | Outpatient (CLI) | payer OTHER ==
[~2022-03-01] MED LIST changes: +CARV6.25 PO; +CATAPRES0.1 MG PO; +HYDRA25 PO; +Isosorbide Mono30 MG PO
[2022-03-01 17:28] LABS: BASOPHILS ABSOLUTE AUTO 0.02 K/mm3 (0.00-0.23); BASOPHILS PERCENT AUTO 0 % (0-2); EOSINOPHILS ABSOLUTE AUTO 0.01 K/mm3 (0.00-0.68); EOSINOPHILS PERCENT AUTO 0 % (0-6); Hematocrit 33.6 % (33.0-51.0); Hemoglobin 10.7 g/dL (11.5-16.0); IMMATURE GRAN ABSOLUTE AUTO 0.02 K/mm3 (0.00-0.10); IMMATURE GRAN PERCENT AUTO 0 % (0-1); LYMPHOCYTES ABSOLUTE AUTO 1.22 K/mm3 (0.84-5.20); LYMPHOCYTES PERCENT AUTO 18 % (21-46); MONOCYTES ABSOLUTE AUTO 0.66 K/mm3 (0.16-1.47); MONOCYTES PERCENT AUTO 10 % (4-13); Mean Corpuscular HGB 28.3 pg (26.0-34.0); Mean Corpuscular HGB Conc 31.8 g/dL (31.5-36.5); Mean Corpuscular Volume 89 fL (80-100); Mean Platelet Volume 10.7 fL (9.1-12.4); NEUTROPHILS ABSOLUTE AUTO 4.95 K/mm3 (1.96-9.15); NEUTROPHILS PERCENT AUTO 72 % (41-73); Platelet Count 209 K/mm3 (150-400); RDW Coefficient Variation 13.3 % (11.7-14.2); Red Blood Cell Count 3.78 M/mm3 (3.80-5.20); White Blood Cell Count 6.88 K/mm3 (4.00-11.30)
[2022-03-01 17:38] LABS: Albumin, Blood 2.8 g/dL (3.4-5.0); Albumin/Globulin Ratio 0.7 (0.8-1.8); Bilirubin, Total 0.6 mg/dL (0.1-1.0); Bun/Creatinine Ratio 14.5 (12.0-20.0); Calcium, Blood 8.4 mg/dL (8.5-10.1); Creatinine, Blood 1.72 mg/dL (0.40-1.00); Globulin, Blood 3.9 g/dL (2.2-4.0); Potassium, Blood 4.4 mmol/L (3.5-5.5); Total Protein, Blood 6.7 g/dL (6.4-8.2)
== END | disposition home or self-care (01) ==
LOC: LAB SHORT 17:21 → LAB 17:21
PROVIDERS: Chiropractor
DX: R07.9 Chest pain, unspecified (principal)
CPT/HCPCS: 80053; 84484; 85025; 85379

== ENCOUNTER → 2023-02-05 | Outpatient (CLI) | payer MEDICARE ==
[~2023-02-05] MED LIST changes: +Norco 5-325 Ta1 EACH PO
== END ==
LOC: LAB SHORT 16:00 → LAB EV 16:00
DX: R82.998 Other abnormal findings in urine (principal); R55 Syncope and collapse
CPT/HCPCS: 87077; 87086; 87186

== ENCOUNTER 2023-05-28 12:05 | Inpatient (IN) | payer OTHER, MEDICAID ==
[~2023-05-28] VITALS: Ht 167.6 cm; Wt 61.0 kg
[~2023-05-28 12:05] MED LIST changes: +BACTRIM DS TAB1 EAC1 PO; +Cleocin HCl150 MG PO
[2023-05-28 13:29] VITALS: BP 119/59
[2023-05-28] MEDS ORDERED: HYDROcodone 10-APAP 325 TAB PO PRN ×2 (13:30→16:00)
[2023-05-28] MEDS ORDERED: Magnesium Hydroxide Conc 10 ML UDC PO PRN (13:30)
[2023-05-28] MEDS ORDERED: Acetaminophen 325 MG TABLET PO PRN (13:30)
[2023-05-28] MEDS ORDERED: FLU VACC QS2023-24(6MOS UP)/PF 60 MCG/0.5 ML SYRINGE IM SCH (13:30)
[2023-05-28] MEDS ORDERED: Ondansetron 4 MG TAB PO PRN (13:35)
[2023-05-28] MEDS ORDERED: Clindamycin 600mg in D5W 50 ML IV SCH (14:34)
[2023-05-28 15:04] LABS: BASOPHILS ABSOLUTE AUTO 0.03 K/mm3 (0.00-0.23); BASOPHILS PERCENT AUTO 0 % (0-2); EOSINOPHILS ABSOLUTE AUTO 0.01 K/mm3 (0.00-0.68); EOSINOPHILS PERCENT AUTO 0 % (0-6); Hematocrit 33.1 % (33.0-51.0); Hemoglobin 10.3 g/dL (11.5-16.0); IMMATURE GRAN ABSOLUTE AUTO 0.04 K/mm3 (0.00-0.10); IMMATURE GRAN PERCENT AUTO 1 % (0-1); LYMPHOCYTES ABSOLUTE AUTO 0.86 K/mm3 (0.84-5.20); LYMPHOCYTES PERCENT AUTO 10 % (21-46); MONOCYTES PERCENT AUTO 12 % (4-13); Mean Corpuscular HGB 27.6 pg (26.0-34.0); Mean Corpuscular HGB Conc 31.1 g/dL (31.5-36.5); Mean Corpuscular Volume 89 fL (80-100); Mean Platelet Volume 10.4 fL (9.1-12.4); NEUTROPHILS ABSOLUTE AUTO 6.73 K/mm3 (1.96-9.15); NEUTROPHILS PERCENT AUTO 78 % (41-73); Platelet Count 256 K/mm3 (150-400); RDW Coefficient Variation 12.6 % (11.7-14.2); RDW Standard Deviation 40.8 fL (35.1-46.3); Red Blood Cell Count 3.73 M/mm3 (3.80-5.20); White Blood Cell Count 8.67 K/mm3 (4.00-11.30)
[2023-05-28] MEDS ORDERED: Vancomycin HCL 1,250 MG in NS 250 ML IV ONE (15:10)
[2023-05-28] MEDS ORDERED: Insulin Glargine-Yfg SC (15:22)
[2023-05-28 15:23] LABS: Albumin, Blood 2.3 g/dL (3.4-5.0); Albumin/Globulin Ratio 0.5 (0.8-1.8); Bilirubin, Total 0.3 mg/dL (0.1-1.0); Bun/Creatinine Ratio 12.1 (12.0-20.0); C-REACTIVE PROTEIN, EXT RANGE 11.8 mg/dL (0.000-0.300); Calcium, Blood 8.8 mg/dL (8.5-10.1); Creatinine, Blood 3.06 mg/dL (0.40-1.00); Globulin, Blood 4.7 g/dL (2.2-4.0); Potassium, Blood 4.7 mmol/L (3.5-5.5)
[2023-05-28] MEDS ORDERED: ASPI81CH PO (15:23)
[2023-05-28] MEDS ORDERED: FARXIGA5 MG PO (15:24)
[2023-05-28] MEDS ORDERED: HYDR10 PO (15:25)
[2023-05-28] MEDS ORDERED: ISOSORBIDE MONO30 MG PO (15:26)
[2023-05-28 15:32] VITALS: BP 141/71
[2023-05-28] MEDS ORDERED: NS 1,000 ML IV SCH (15:50)
[2023-05-28] MEDS ORDERED: Irbesartan 150 MG Tab PO SCH (16:00)
[2023-05-28] MEDS ORDERED: Insulin Regular 100 UNIT/ML 10ML Vial SC SCH (16:30)
--- NOTE | 2023-05-28 16:56 | NUR ---
LATE ENTRY DIRECT ADMIT 1305: RECEIVED PT TO ROOM 209 VIA W/C. PLACED IN BED, MADE COMFORTABLE, ORIENTED TO ROOM & UNIT ROUTINE. NEW PIV STARTED IN L FA WITH 22 G X 1 ATTEMPT. A&O X 4, VSS. LRG SWOLLEN HARD ABCESS NOTED ON R ANT UPPER THIGH. PLACED CALL TO DR. COPELAND. ORDERS RECEIVED. PT REMAINS COMFORTABLE IN BED. IS PLEASANT & COOPERATIVE WITH ALL CARE. NS INFUSING AT 100/HR PER MD ORDER. IV ABX GIVEN ORDERED.
--- NOTE | 2023-05-28 18:52 | NUR ---
SHIFT SUMMARY A&O X 4, VSS. NO CHANGES SINCE ADMIT. IS NPO AFTER MN FOR POSS SURG TOMORROW FOR I&D OF THIGH ABCESS. IS PLEASANT & COOPERATIVE WITH ALL CARE. CALL LIGHT IN REACH, BED IN LOW POSITION, IS ABLE TO MAKE NEEDS KNOWN.
[2023-05-28 19:21] VITALS: BP 127/61
[2023-05-28] MEDS ORDERED: HydrALAZINE HCl 10 MG Tab PO SCH (21:00)
[2023-05-28] MEDS ORDERED: Docusate Sodium 100 MG Cap PO SCH (21:00)
[2023-05-28] MEDS ORDERED: Famotidine 20 MG Tab PO SCH (21:00)
[2023-05-28] MEDS ORDERED: Insulin Glargine-Yfgn 100 Unit/mL 3 ML SYR SC SCH (21:00)
[2023-05-29] VITALS (16 sets, daily range): BP systolic 98–146; BP diastolic 51–93
[2023-05-29 05:21] LABS: BASOPHILS ABSOLUTE AUTO 0.03 K/mm3 (0.00-0.23); BASOPHILS PERCENT AUTO 1 % (0-2); EOSINOPHILS ABSOLUTE AUTO 0.01 K/mm3 (0.00-0.68); EOSINOPHILS PERCENT AUTO 0 % (0-6); Hematocrit 31.2 % (33.0-51.0); Hemoglobin 9.7 g/dL (11.5-16.0); IMMATURE GRAN ABSOLUTE AUTO 0.08 K/mm3 (0.00-0.10); IMMATURE GRAN PERCENT AUTO 1 % (0-1); LYMPHOCYTES ABSOLUTE AUTO 1.38 K/mm3 (0.84-5.20); LYMPHOCYTES PERCENT AUTO 21 % (21-46); MONOCYTES ABSOLUTE AUTO 0.87 K/mm3 (0.16-1.47); MONOCYTES PERCENT AUTO 13 % (4-13); Mean Corpuscular HGB 27.5 pg (26.0-34.0); Mean Corpuscular HGB Conc 31.1 g/dL (31.5-36.5); Mean Corpuscular Volume 88 fL (80-100); Mean Platelet Volume 10.6 fL (9.1-12.4); NEUTROPHILS PERCENT AUTO 64 % (41-73); Platelet Count 257 K/mm3 (150-400); RDW Coefficient Variation 12.8 % (11.7-14.2); RDW Standard Deviation 40.8 fL (35.1-46.3); Red Blood Cell Count 3.53 M/mm3 (3.80-5.20); White Blood Cell Count 6.57 K/mm3 (4.00-11.30)
--- NOTE | 2023-05-29 05:39 | NUR ---
PT SUMMARY: NO ACUTE CHANGE OVERNIGHT, VITALS HAS BEEN STABLE, PT WAS MEDICATED ONCE FOR GA THIGH PAIN, REDDENED AREA/SITE WERE MARKED, PT IS ALERT AND ORIENTED X3-4 CAN BE FORGETFUL AT TIMES. PT WAS ASSISTED SBA TO THE BATHROOM PT ABLE TO TOLERATE WELL TODAY. PT INDEPENDENLTY MOVING IN BED WITH NO ISSUES. PT KEPT NPO AFTER MIDNIGHT PER REPORT FOR POSS PROCEDURE IN AM. LONG ACTING INSULIN WAS GIVEN AT BEDTIME PT REQUESTED FOR SOME TURKEY SANDWICH AND SPRITE, CBG RECHECKED THIS MORNING AND WAS 89. WILL RECHECK AGAIN BEFORE BREAKFAST. NO OTHER ISSUES ECOUNTERED FOR THE SHIFT ABLE TO MAKE NEEDS KNOWN
[2023-05-29 05:47] LABS: Albumin, Blood 2.1 g/dL (3.4-5.0); Albumin/Globulin Ratio 0.5 (0.8-1.8); Bilirubin, Total 0.3 mg/dL (0.1-1.0); Bun/Creatinine Ratio 10.7 (12.0-20.0); Calcium, Blood 8.3 mg/dL (8.5-10.1); Creatinine, Blood 3.38 mg/dL (0.40-1.00); Globulin, Blood 4.2 g/dL (2.2-4.0); Potassium, Blood 4.5 mmol/L (3.5-5.5); Total Protein, Blood 6.3 g/dL (6.4-8.2)
[2023-05-29] MEDS ORDERED: Empagliflozin 10 MG TAB PO SCH (09:00)
[2023-05-29] MEDS ORDERED: Isosorbide Mononitrate 30 MG TABCR PO SCH (09:00)
[2023-05-29] MEDS ORDERED: Enoxaparin 40 MG/0.4 ML SYR SC SCH (09:00)
[2023-05-29] MEDS ORDERED: Aspirin 81 MG Chew PO SCH (09:00)
[2023-05-29] MEDS ORDERED: Insulin Glargine-Yfgn 100 Unit/mL 3 ML SYR SC SCH ×3 (09:00→21:00)
--- NOTE | 2023-05-29 09:27 | NUR ---
PATIENT STATES SHE IS NOT ALLERGIC TO PENICILLIN AND WOULD LIKE IT OFF OF HER ALLERGY/ADVERSE REACTION LIST. REMOVED PENICILLIN FROM ALLERGY LIST.
[2023-05-29] MEDS ORDERED: Bupivacaine 0.5% HCl 5 MG/ML 30MLVIAL ONE (09:45)
[2023-05-29] MEDS ORDERED: EpiNEPhrine 1 MG/1 ML 1ML Vial ONE (09:45)
[2023-05-29] MEDS ORDERED: NS 1,000 ML IV SCH ×2 (09:50→19:00)
[2023-05-29] MEDS ORDERED: FentaNYL Citrate 50 MCG/ML 2 ML Injection ONE (10:12)
[2023-05-29] MEDS ORDERED: propofoL 20 ML IV ONE (10:12)
--- NOTE | 2023-05-29 10:21 | NUR ---
CELL PHONE AND NECKLACE BROUGHT TO PACU FOR SAFE KEEPING DURING SURGERY PER PATIENT REQUEST. PATIENT STATES SHE LEFT HER DENTURES AT HOME.
[2023-05-29] MEDS ORDERED: Ondansetron HCl 2 MG / ML 2ML Vial ONE (10:23)
--- NOTE | 2023-05-29 11:44 | NUR ---
PT ARRIVED BACK TO ROOM VIA BED FROM DAY SURGERY. PT ALERT, ORIENTED AND ASKING FOR FOOD. VSS. IV INFUSING PER EMAR. BED IN LOW POSITION, CALL LIGHT WITHIN REACH.
--- NOTE | 2023-05-29 13:44 | NUR ---
61 ML URINE RETAINED POST VOID PER BONE PULLER AT THIS TIME.
[2023-05-29] MEDS ORDERED: Darbepoetin Alfa in Polysorbat 25 MCG/0.42 ML Syringe SC SCH (16:00)
--- NOTE | 2023-05-29 17:42 | NUR ---
Pt. is awake in bed and welcomes my visit. Pt. is pleasant, and a lengthy life review is facilitated. Pt. shared stories about how she survived the [place] and the impact it had on the community and her life. The Pt. also verbalized questions to this cabinet finisher regarding life and [place]. Pt. displayed evidence of trust and verbalized her thoughts and questions clearly. Prayed with the Pt. Pt. verbalized gratitude for the spiritual care visit and welcomed this cabinet finisher to return.
--- NOTE | 2023-05-29 17:58 | NUR ---
SHIFT SUMMARY PT AXO, PLEASANT AND COOPERATIVE WITH CARE THOUGH FORGETFUL. HAD I&d OF RIGHT UPPER THIGH ABCESS THIS SHIFT, SURGICAL DRESSING IN PLACE, CDI. VSS. IV PATENT AND INFUSING PER EMAR. PT MEDICATED FOR PAIN PER EMAR. UP WITH 1 ASSIST TO BATHROOM. IV PATENT. BED IN LOW POSITION, CALL LIGHT WITHIN REACH. PT HAS MEDICATION FROM HOME LOCKED IN DRAWER, OKAY PER CHARGE NURSE.
[2023-05-29 18:06] LABS: Vancomycin, Random 13.9 ug/mL
[2023-05-29] MEDS ORDERED: Vancomycin HCL 1,000 MG in NS 100 ML IV ONE (23:00)
[2023-05-30 04:21] VITALS: BP 129/58
--- NOTE | 2023-05-30 05:46 | NUR ---
SHIFT SUMMARY POD1 I&D ON RIGHT THIGH. DRESSING CHANGED MULTIPLE TIMES T/O THE NIGHT D/T PT PICKING AT IT. NOTED TO BE SATURATED ONCE W/ SS FLUID. PT EDUCATED ABOUT IMPORTANCE OF HAND HYGINE AND NOT TOUCHING HER INCISION. SENSATION AND CIRCULATION REMAINS INTACT IN RLE. VSS. PT SLEPT ON AND OFF T/O THE NIGHT. TOLLERATING PO INTAKE W/O N/V. VOIDING W/O DIFFICULTY, NO BM'S. MEDICATED FOR PAIN WITH PRN'S. NO ACUTE EVENTS NOTED T/O THE NIGHT. PLAN TO CONTINUE IV ABX.
[2023-05-30 05:59] LABS: BASOPHILS ABSOLUTE AUTO 0.04 K/mm3 (0.00-0.23); BASOPHILS PERCENT AUTO 1 % (0-2); EOSINOPHILS ABSOLUTE AUTO 0.01 K/mm3 (0.00-0.68); EOSINOPHILS PERCENT AUTO 0 % (0-6); Hematocrit 29.3 % (33.0-51.0); Hemoglobin 8.9 g/dL (11.5-16.0); IMMATURE GRAN ABSOLUTE AUTO 0.11 K/mm3 (0.00-0.10); IMMATURE GRAN PERCENT AUTO 2 % (0-1); LYMPHOCYTES ABSOLUTE AUTO 1.41 K/mm3 (0.84-5.20); LYMPHOCYTES PERCENT AUTO 24 % (21-46); MONOCYTES ABSOLUTE AUTO 0.86 K/mm3 (0.16-1.47); MONOCYTES PERCENT AUTO 15 % (4-13); Mean Corpuscular HGB 27.5 pg (26.0-34.0); Mean Corpuscular HGB Conc 30.4 g/dL (31.5-36.5); Mean Corpuscular Volume 90 fL (80-100); Mean Platelet Volume 10.4 fL (9.1-12.4); NEUTROPHILS PERCENT AUTO 58 % (41-73); Platelet Count 236 K/mm3 (150-400); RDW Standard Deviation 43.2 fL (35.1-46.3); Red Blood Cell Count 3.24 M/mm3 (3.80-5.20); White Blood Cell Count 5.83 K/mm3 (4.00-11.30)
[2023-05-30 06:33] LABS: Magnesium, Blood 1.7 mg/dL (1.6-2.4)
[2023-05-30 06:34] LABS: Albumin, Blood 1.9 g/dL (3.4-5.0); Albumin/Globulin Ratio 0.5 (0.8-1.8); Bilirubin, Total 0.2 mg/dL (0.1-1.0); Calcium, Blood 8.3 mg/dL (8.5-10.1); Creatinine, Blood 3.31 mg/dL (0.40-1.00); Globulin, Blood 3.7 g/dL (2.2-4.0); Phosphorus, Blood 3.8 mg/dL (2.5-4.9); Potassium, Blood 5.1 mmol/L (3.5-5.5); Total Protein, Blood 5.6 g/dL (6.4-8.2)
[2023-05-30 07:16] VITALS: BP 149/73
[2023-05-30] MEDS ORDERED: Sodium Zirconium Cyclosilicate 10 GM Packet PO ONE (08:45)
[2023-05-30] MEDS ORDERED: Clindamycin HC300 MG PO (13:47)
--- NOTE | 2023-05-30 14:46 | NUR ---
Pt is sitting upon the side of her bed awaiting discharge when she welcomes my visit. Pt. is pleasant, and verbalizes that she thinks she is ready to discharge. After a few moments of engagement I prayed with the Pt. Pt. verbalized gratitude for the spiritual care visit and asked this arson and bomb investigator for his card, should she need to connect after she gets home.
--- NOTE | 2023-05-30 15:08 | NUR ---
SHIFT/DISCHARGE SUMMARY: PATIENT A/OX4, CALM, PLEASANT AND COOPERATIVE c CARE PROVIDED. PATIENT USES CALL LIGHT APPROPRIATELY AND ABLE TO MAKE NEEDS KNOWN. PATIENT DENIES CP/PRESSURE, SOB, N/V AND DIZZINESS. PATIENT S/P SURGERY DAY 2 TO R THIGH, DRESSING CHANGED THIS AM AND MEDICATED FOR PAIN PER EMAR c GOOD EFFECT. PATIENT RECEIVED IV ABX AND SCHEDULED MEDS PER EMAR. VITAL SIGNS REVIEWED. PIV TO L WRIST/FOREARM DC'D. PATIENT DISCHARGE HOME c HH SERVICES. DISCHARGE INSTRUCTIONS PACKET GIVEN TO PATIENT. EDUCATE PATIENT REGARDING ADMITTING DX'S OF R THIGH HIGH ABCESS, DAILY DRESSING CHANGED, NEW PRESCRIBED MEDS, SELF CARE, AND TO FOLLOW UP c PCP WELL DR. MENDEZ-GENERAL SURGEON. PATIENT VERBALIZED UNDERSTANDING AND NO FURTHER QUESTIONS. PATIENT HOME MEDS 17 TABLET OF HYDROCODONE RETURN TO PATIENT. RX WAS FAXED TO PATIENT PREFERRED PHARMAC[facility] ([facility] ALL PATIENT PERSONAL BELONGINGS WERE SENT HOME c THE PATIENT. PATIENT LEFT THE ROOM AT 1455 AND WAS TRANSPORTED VIA WHEELCHAIR BY [facility] STAFF, SIDRA Rapp TO PATIENT ENTRANCE.
== END 2023-05-30 17:01 | disposition home health service (06) | DRG 603 ==
LOC: MEDS 12:05 → SURS 12:45
PROVIDERS: Family Medicine; Internal Medicine Nephrology; Surgery; ADMIT Hospitalist
PROC: 0Y970ZZ Drainage of Right Femoral Region, Open Approach (ICD-10-PCS; principal; 2023-05-29 10:00)
DX: L02.415 Cutaneous abscess of right lower limb (principal); N17.9 Acute kidney failure, unspecified; I44.2 Atrioventricular block, complete; L03.115 Cellulitis of right lower limb; I12.9 Hypertensive chronic kidney disease with stage 1 through stage 4 chronic kidney disease, or unspecified chronic kidney disease; E11.9 Type 2 diabetes mellitus without complications; N18.30 Chronic kidney disease, stage 3 unspecified; I70.0 Atherosclerosis of aorta; I27.20 Pulmonary hypertension, unspecified; D63.1 Anemia in chronic kidney disease; E78.5 Hyperlipidemia, unspecified; G89.4 Chronic pain syndrome; K52.9 Noninfective gastroenteritis and colitis, unspecified; F32.A Depression, unspecified; K21.9 Gastro-esophageal reflux disease without esophagitis; E86.9 Volume depletion, unspecified; E88.09 Other disorders of plasma-protein metabolism, not elsewhere classified; Z88.5 Allergy status to narcotic agent; Z95.0 Presence of cardiac pacemaker; Z88.8 Allergy status to other drugs, medicaments and biological substances; Z79.4 Long term (current) use of insulin; Z79.82 Long term (current) use of aspirin; Z60.2 Problems related to living alone; Z79.891 Long term (current) use of opiate analgesic
CPT/HCPCS: 36415; 76770; 80053; 80202; 82947; 83036; 83735; 84100; 85025; 86140; 87070; 87075; 87077; 87147; 87186; 87205; A9270; J0171; J0881; J1815; J2405; J2704; J3010; J3370; J7030; J7050

== ENCOUNTER 2024-05-12 20:47 | Emergency (ER) | payer OTHER ==
[~2024-05-12] VITALS: Ht 167.6 cm; Wt 63.5 kg
[~2024-05-12 20:47] MED LIST changes: +Clindamycin HC300 MG PO; +FARXIGA5 MG PO; +HYDR10 PO; +ISOSORBIDE MONO30 MG PO; +Insulin Glargine-Yfg SC
[2024-05-12 21:20] LABS: BASOPHILS ABSOLUTE AUTO 0.01 K/mm3 (0.00-0.23); BASOPHILS PERCENT AUTO 0 % (0-2); EOSINOPHILS PERCENT AUTO 0 % (0-6); Hematocrit 34.8 % (33.0-51.0); IMMATURE GRAN ABSOLUTE AUTO 0.01 K/mm3 (0.00-0.10); IMMATURE GRAN PERCENT AUTO 0 % (0-1); LYMPHOCYTES PERCENT AUTO 16 % (21-46); MONOCYTES ABSOLUTE AUTO 0.76 K/mm3 (0.16-1.47); MONOCYTES PERCENT AUTO 14 % (4-13); Mean Corpuscular HGB 26.3 pg (26.0-34.0); Mean Corpuscular HGB Conc 31.6 g/dL (31.5-36.5); Mean Corpuscular Volume 83 fL (80-100); Mean Platelet Volume 11.7 fL (9.1-12.4); NEUTROPHILS ABSOLUTE AUTO 3.82 K/mm3 (1.96-9.15); NEUTROPHILS PERCENT AUTO 69 % (41-73); Platelet Count 244 K/mm3 (150-400); RDW Coefficient Variation 13.1 % (11.7-14.2); RDW Standard Deviation 39.8 fL (35.1-46.3); Red Blood Cell Count 4.18 M/mm3 (3.80-5.20)
[2024-05-12 21:26] LABS: INFLUENZA A AG Positive (NEGATIVE)
[2024-05-12 21:27] LABS: CORONAVIRUS COVID-19 AG Negative (NEGATIVE); INFLUENZA B AG Negative (NEGATIVE)
[2024-05-12 21:39] LABS: Albumin, Blood 2.6 g/dL (3.4-5.0); Albumin/Globulin Ratio 0.5 (0.8-1.8); Bilirubin, Total 0.4 mg/dL (0.1-1.0); Bun/Creatinine Ratio 19.9 (12.0-20.0); Calcium, Blood 8.6 mg/dL (8.5-10.1); Creatinine, Blood 2.92 mg/dL (0.40-1.00); Potassium, Blood 4.4 mmol/L (3.5-5.5); Total Protein, Blood 7.6 g/dL (6.4-8.2)
[2024-05-12 23:00] VITALS: BP 126/65
== END 2024-05-12 23:05 | disposition home or self-care (01) ==
LOC: ER 20:47
PROVIDERS: Student in an Organized Health Care Education/Training Program
DX: J11.1 Influenza due to unidentified influenza virus with other respiratory manifestations (principal); I12.9 Hypertensive chronic kidney disease with stage 1 through stage 4 chronic kidney disease, or unspecified chronic kidney disease; E11.22 Type 2 diabetes mellitus with diabetic chronic kidney disease; N18.9 Chronic kidney disease, unspecified; Z88.8 Allergy status to other drugs, medicaments and biological substances; Z88.5 Allergy status to narcotic agent; Z79.82 Long term (current) use of aspirin; Z79.899 Other long term (current) drug therapy
CPT/HCPCS: 71046; 80053; 85025; 87428-QW; 99284-25

== ENCOUNTER → 2024-07-21 | Outpatient (CLI) | payer OTHER ==
[2024-07-21 15:31] LABS: BASOPHILS ABSOLUTE AUTO 0.03 K/mm3 (0.00-0.23); BASOPHILS PERCENT AUTO 0 % (0-2); EOSINOPHILS ABSOLUTE AUTO 0.04 K/mm3 (0.00-0.68); EOSINOPHILS PERCENT AUTO 1 % (0-6); Hematocrit 30.9 % (33.0-51.0); Hemoglobin 9.5 g/dL (11.5-16.0); IMMATURE GRAN ABSOLUTE AUTO 0.02 K/mm3 (0.00-0.10); IMMATURE GRAN PERCENT AUTO 0 % (0-1); LYMPHOCYTES ABSOLUTE AUTO 1.36 K/mm3 (0.84-5.20); LYMPHOCYTES PERCENT AUTO 18 % (21-46); MONOCYTES ABSOLUTE AUTO 0.83 K/mm3 (0.16-1.47); MONOCYTES PERCENT AUTO 11 % (4-13); Mean Corpuscular HGB 25.6 pg (26.0-34.0); Mean Corpuscular HGB Conc 30.7 g/dL (31.5-36.5); Mean Corpuscular Volume 83 fL (80-100); Mean Platelet Volume 11.5 fL (9.1-12.4); NEUTROPHILS ABSOLUTE AUTO 5.29 K/mm3 (1.96-9.15); NEUTROPHILS PERCENT AUTO 70 % (41-73); Platelet Count 220 K/mm3 (150-400); RDW Coefficient Variation 15.9 % (11.7-14.2); RDW Standard Deviation 48.6 fL (35.1-46.3); Red Blood Cell Count 3.71 M/mm3 (3.80-5.20); White Blood Cell Count 7.57 K/mm3 (4.00-11.30)
[2024-07-21 16:04] LABS: Albumin, Blood 2.8 g/dL (3.4-5.0); Albumin/Globulin Ratio 0.7 (0.8-1.8); Bilirubin, Total 0.3 mg/dL (0.1-1.0); Bun/Creatinine Ratio 17.7 (12.0-20.0); Calcium, Blood 8.1 mg/dL (8.5-10.1); Creatinine, Blood 2.09 mg/dL (0.40-1.00); Potassium, Blood 4.2 mmol/L (3.5-5.5); Total Protein, Blood 6.8 g/dL (6.4-8.2)
== END | disposition home or self-care (01) ==
LOC: LAB 13:58 → LAB SHORT 13:58
PROVIDERS: Hospitalist
DX: I12.9 Hypertensive chronic kidney disease with stage 1 through stage 4 chronic kidney disease, or unspecified chronic kidney disease (principal); E11.22 Type 2 diabetes mellitus with diabetic chronic kidney disease; N18.9 Chronic kidney disease, unspecified
CPT/HCPCS: 80053; 83036; 83970; 85025